=== PATIENT | male | born 1985 | race Caucasian/White ===

== ENCOUNTER 2021-03-30 06:00 | Emergency (ER) | payer SELFPAY ==
[~2021-03-30] VITALS: Ht 185.4 cm; Wt 172.4 kg
[2021-03-30 06:15] LABS: APPEARANCE,URINE Clear (CLEAR); BASOPHILS % (AUTO) 0.8 % (0.0-5.0); BILIRUBIN,URINE Negative (NEGATIVE); COLOR,URINE Yellow (YELLOW); EOSINOPHILS % (AUTO) 0.7 % (0.0-8.0); GLUCOSE, URINE (UA) Negative (NEGATIVE); HEMATOCRIT 48.1 % (42-54); KETONES,URINE Negative (NEGATIVE); LEUKOCYTE ESTERASE ,URINE Negative (NEGATIVE); LYMPHOCYTES % (AUTO) 32.4 % (21.0-51.0); MEAN CORPUSCULAR HEMOGLOBIN 30.6 pg (27.0-33.0); MEAN CORPUSCULAR HGB CONC 33.5 g/dL (32.0-36.0); MEAN CORPUSCULAR VOLUME 91.4 fL (79-99); NEUTROPHILS % (AUTO) 57.7 % (40.0-77.0); NITRATE,URINE Negative (NEGATIVE); OCCULT BLOOD,URINE Negative (NEGATIVE); PLATELET COUNT (AUTO) 297 K/uL (130-400); PROTEIN,URINE Negative (NEGATIVE); RED BLOOD CELL COUNT(AUTO) 5.26 MIL/uL (4.50-6.20); RED CELL DISTRIBUTION WIDTH 12.9 % (11.0-15.5); WHITE BLOOD COUNT (AUTO) 8.9 K/uL (4.8-10.8)
[2021-03-30 06:47] LABS: ALBUMIN 4.2 g/dL (3.5-5.0); BILIRUBIN,TOTAL 0.6 mg/dL (0.2-1.0); POTASSIUM 3.8 mmol/L (3.5-5.1)
[2021-03-30 08:18] VITALS: BP 118/76
== END 2021-03-30 08:19 | disposition home or self-care (01) ==
LOC: EDH 06:00
DX: F41.9 Anxiety disorder, unspecified (principal); R07.89 Other chest pain
CPT/HCPCS: 36415; 71045; 80053; 81003; 84484; 85025; 93005

== ENCOUNTER 2022-12-21 16:28 | Emergency (ER) | payer OTHER ==
[~2022-12-21] VITALS: Ht 185.4 cm; Wt 167.8 kg
[2022-12-21 19:37] VITALS: BP 135/75; PULSE 84; RESP 16; O2SAT 97
[2022-12-21] MEDS ORDERED: IBUP-2070 PO (20:12)
[2022-12-21] MEDS ORDERED: HYDROCODONE/ACETAMINOPHEN 5/325 MG TAB PO SCH (20:30)
[2022-12-21] MEDS ORDERED: IBUPROFEN 600 MG TABLET PO SCH (20:30)
== END 2022-12-21 20:47 | disposition home or self-care (01) ==
LOC: EDH 16:28
DX: S83.91XA Sprain of unspecified site of right knee, initial encounter (principal); W18.39XA Other fall on same level, initial encounter; Y93.01 Activity, walking, marching and hiking; Y92.89 Other specified places as the place of occurrence of the external cause; Y99.8 Other external cause status
CPT/HCPCS: 73562

== ENCOUNTER 2023-03-24 15:16 | Emergency (ER) | payer BC, OTHER ==
[~2023-03-24] VITALS: Ht 185.4 cm; Wt 167.4 kg
[~2023-03-24 15:16] MED LIST: IBUP-2070 PO
[2023-03-24 15:24] VITALS: BP 141/83; PULSE 84; RESP 16; O2SAT 97
[2023-03-24] MEDS ORDERED: ACETAMINOPHEN 325 MG TAB PO ONE (17:00)
[2023-03-24 17:11] LABS: APPEARANCE,URINE CLEAR (CLEAR); BILIRUBIN,URINE NEGATIVE (NEGATIVE); COLOR,URINE LIGHT-YELLOW (YELLOW); GLUCOSE, URINE (UA) NEGATIVE (NEGATIVE); KETONES,URINE NEGATIVE (NEGATIVE); LEUKOCYTE ESTERASE ,URINE NEGATIVE Leu/uL (NEGATIVE); NITRATE,URINE NEGATIVE (NEGATIVE); OCCULT BLOOD,URINE NEGATIVE (NEGATIVE); PROTEIN,URINE 10 mg/dL (NEGATIVE); UROBILINOGEN,URINE 0.2 mg/dL (0.2-1.0)
[2023-03-24 17:13] LABS: ADD UA MICROSCOPIC YES
[2023-03-24 17:14] LABS: MUCUS,URINE RARE LPF (None Seen); RBC,URINE 0-1 /HPF (0-1); WBC,URINE 0-1 /HPF (0-1)
[2023-03-24] MEDS ORDERED: CYCLOBENZAPRINE HCL 10 MG TABLET PO ONE (17:30)
[2023-03-24] MEDS ORDERED: CYCL10TA16 PO (17:34)
[2023-03-24] MEDS ORDERED: ACET-2893 PO (17:34)
== END 2023-03-24 17:51 | disposition home or self-care (01) ==
LOC: EDH 15:16
DX: M54.32 Sciatica, left side (principal)
CPT/HCPCS: 81001

== ENCOUNTER 2024-08-01 19:28 | Emergency (ER) | payer BC, OTHER ==
[~2024-08-01] VITALS: Ht 188 cm; Wt 179.6 kg
[~2024-08-01 19:28] MED LIST changes: +ACET-2893 PO; +CYCL10TA16 PO
[2024-08-01] MEDS: morPHINE 2 MG SYG IVP ONE (20:11)
[2024-08-01] MEDS: 0.9%NACL 1000ML 1,000 ML IV ONE (20:11)
[2024-08-01] MEDS: ondanSETRON 4MG INJ IVP ONE (20:11)
[2024-08-01 20:36] LABS: BASOPHILS # (AUTO) 0.09 K/uL (0.00-0.20); BASOPHILS % (AUTO) 1.2 % (0.0-5.0); EOSINOPHILS # (AUTO) 0.11 K/uL (0.00-0.70); EOSINOPHILS % (AUTO) 1.5 % (0.0-8.0); HEMATOCRIT 44.4 % (42-54); IMMATURE GRANULOCYTE ABSOLUTE 0.03 K/uL (0-1); LYMPHOCYTES # (AUTO) 1.9 K/uL (1.0-4.8); LYMPHOCYTES % (AUTO) 25.3 % (21.0-51.0); MEAN CORPUSCULAR HGB CONC 33.3 g/dL (32.0-36.0); MEAN CORPUSCULAR VOLUME 95.9 fL (79-99); MONOCYTES # (AUTO) 0.4 K/uL (0.1-1.0); MONOCYTES % (AUTO) 5.9 % (3.0-13.0); NEUTROPHILS # (AUTO) 4.9 K/uL (1.8-7.7); NEUTROPHILS % (AUTO) 65.7 % (40.0-77.0); PLATELET COUNT (AUTO) 244 K/uL (130-400); RED BLOOD CELL COUNT(AUTO) 4.63 MIL/uL (4.50-6.20); RED CELL DISTRIBUTION WIDTH 13.3 % (11.0-15.5); WHITE BLOOD COUNT (AUTO) 7.5 K/uL (4.8-10.8)
[2024-08-01 20:46] LABS: INR 0.97 (0.85-1.15); PROTHROMBIN TIME 10.3 SEC (9.6-11.6)
[2024-08-01 20:48] LABS: PARTIAL THROMBOPLASTIN TIME 27.5 SEC (26.3-35.5)
[2024-08-01 20:53] LABS: CARBON DIOXIDE 32 mmol/L (21-32); CHLORIDE 106 mmol/L (101-111); CREATININE 1.1 mg/dL (0.5-1.3); GLOMERULAR FILTR. RATE CALC 88 mL/min (>90); GLUCOSE,RANDOM 103 mg/dL (70-105); POTASSIUM 3.7 mmol/L (3.5-5.1); SODIUM SERUM 144 mmol/L (136-145); UREA NITROGEN, BLOOD 14 mg/dL (7-18)
[2024-08-01 20:57] LABS: ACETAMINOPHEN 3 mcg/mL (10-29); ALANINE AMINOTRANSFERASE 48 U/L (12-78); ALBUMIN 3.5 g/dL (3.5-5.0); ASPARTATE AMINOTRANSFERASE 19 U/L (10-37); BILIRUBIN,DIRECT 0.1 mg/dL (0.0-0.3); BILIRUBIN,TOTAL 0.3 mg/dL (0.2-1.0)
[2024-08-01 21:01] LABS: SALICYLATE < 2.8 mg/dL (2.8-20.0)
[2024-08-01] MEDS: ketOROlac 15MG/ML VIAL (15MG/ML) IV ONE (21:30)
[2024-08-01] MEDS: cefTRIAXone 1G VIAL IVPB ONE (21:54)
[2024-08-01] MEDS ORDERED: FAMO20TA8 PO (22:05)
[2024-08-01] MEDS ORDERED: KETO10TA2 PO (22:05)
[2024-08-01] MEDS ORDERED: AMOX1TAB16 PO (22:05)
--- NOTE | 2024-08-01 22:05 | ERN ---
General Chief Complaint: Tooth Ache/Pain Stated Complaint: C/O TOOTHACHE Time Seen by MD: 19:31 Time Seen by Midlevel: 19:31 Source: patient History of Present Illness Initial Comments She was 39-year-old male presenting to the emergency department for evaluation of dental pain. Patient states that for the last month he has been taking approximately 18 Tylenol and 18 Motrins a day. Today he noticed an increase in abdominal cramping which concerned him given the amount of medication he has been taking so he decided to report to the ER for further evaluation. Denies any other complaints at this time patient states he has been unable to see a doctor or dentist because he was waiting for his insurance to start in 14 days. Allergies: Coded Allergies: No Known Allergies (Unverified Allergy, Unknown, 12/21/22) Home Meds Active Scripts Cyclobenzaprine HCl (Flexeril) 10 Mg Tab, 10 MG PO TID, #15 TAB Prov:DREW ELIAS V [facility] 03/24/23 Acetaminophen (Acetaminophen ER) 650 Mg Tablet.er, 650 MG PO TID, #30 TAB Prov:DREW ELIAS [facility] 03/24/23 Ibuprofen (Ibuprofen) 600 Mg Tablet, 600 MG PO Q6H PRN for PAIN, #60 TAB Prov:TIM PRECIADO [facility] 12/21/22 Past Medical History Past Medical History: Unknown Past Surgical History: Unknown Family History Family History: Negative Social History Social History: Negative, Lives with family, Other ROS Dictation CONSTITUTIONAL: Negative except for HPI HEAD/FACE: Negative except for HPI EENT: Negative except for HPI RESPIRATORY: Negative except for HPI GASTROINTESTINAL/ABDOMINAL: Negative except for HPI GENITOURINARY: Negative except for HPI MUSCULOSKELETAL: Negative except for HPI INTEGUMENTARY: Negative except for HPI NEUROLOGICAL/PSYCH: Negative except for HPI HEMATOLOGIC/LYMPHATIC: Negative except for HPI All Systems Negative, Except as noted above. 13 point review of systems assessed and all negative except for above. Physical Exam Physical Exam Dictation Vital Signs reviewed General Appearance: Alert, oriented x 3, no acute distress, well developed, nourished. Head and Face: non-traumatic. Eyes: PERRL, pink conjunctivas, eyelid no trauma, anterior chamber with arcus senilis. Ears: Pinnas intact and no signs of trauma or erythema ear canals clear and no discharge TM no erythema Nose: No discharge, no bleeding. Oropharynx: Mouth normal, tongue pink, pharynx clear,no erythema, tonsils no exudates, no abscesses noted, mucous membrane moist, poor dentition, dental caries throughout Neck: Supple, non-tender, no thyromegaly, no masses, no JVD, no bruits Breast:Deferred Chest:No tenderness, no crepitus, no paradoxical movement, no retractions Lungs:Clear, well-ventilated, symmetric, no rales, no wheezing, no rhonchi, no stridor, good breath sounds bilaterally Heart: Regular rate, regular rhythm, no murmur, no gallops Vascular: no peripheral edema, Abdomen: Soft, positive bowel sounds, nondistended, no guarding, nontender, no rebound, no masses no hepatomegaly, no splenomegaly, no Hoskins's sign, no hernias. Rectal: Deferred Genital: Deferred Neurological: Normal speech, motor function intact, sensory function intact Musculoskeletal: Neck nontender, full range of motion, back nontender, full range of motion, Extremities: nontender, full range of motion Skin: Color pink, dry, no turgor, no rash, no lacerations, no abrasions, no contusions. Lymphatic: Deferred Results Laboratory and Microbiology Lab and Micro Result Laboratory Tests Test 08/01/24 20:24 White Blood Count 7.5 K/uL (4.8-10.8) Red Blood Count 4.63 MIL/uL (4.50-6.20) Hemoglobin 14.8 g/dL (14.0-18.0) Hematocrit 44.4 % (42-54) Mean Corpuscular Volume 95.9 fL (79-99) Mean Corpuscular Hemoglobin 32.0 pg (27.0-33.0) Mean Corpuscular Hemoglobin Concent 33.3 g/dL (32.0-36.0) Red Cell Distribution Width 13.3 % (11.0-15.5) Platelet Count 244 K/uL (130-400) Mean Platelet Volume 10.9 fL (7.5-10.5) H Immature Granulocyte % (Auto) 0.4 % (0-1) Neutrophils (%) (Auto) 65.7 % (40.0-77.0) Lymphocytes (%) (Auto) 25.3 % (21.0-51.0) Monocytes (%) (Auto) 5.9 % (3.0-13.0) Eosinophils (%) (Auto) 1.5 % (0.0-8.0) Basophils (%) (Auto) 1.2 % (0.0-5.0) Neutrophils # (Auto) 4.9 K/uL (1.8-7.7) Lymphocytes # (Auto) 1.9 K/uL (1.0-4.8) Monocytes # (Auto) 0.4 K/uL (0.1-1.0) Eosinophils # (Auto) 0.11 K/uL (0.00-0.70) Basophils # (Auto) 0.09 K/uL (0.00-0.20) Absolute Immature Granulocyte (auto 0.03 K/uL (0-1) Nucleated Red Blood Cells 0.0 % (0.0-0.19) Prothrombin Time 10.3 SEC (9.6-11.6) Prothromb Time International Ratio 0.97 (0.85-1.15) Activated Partial Thromboplast Time 27.5 SEC (26.3-35.5) Sodium Level 144 mmol/L (136-145) Potassium Level 3.7 mmol/L (3.5-5.1) Chloride Level 106 mmol/L (101-111) Carbon Dioxide Level 32 mmol/L (21-32) Blood Urea Nitrogen 14 mg/dL (7-18) Creatinine 1.1 mg/dL (0.5-1.3) Glomerular Filtration Rate Calc 88 mL/min (>90) Random Glucose 103 mg/dL (70-105) Total Calcium 8.6 mg/dL (8.5-10.1) Total Bilirubin 0.3 mg/dL (0.2-1.0) Direct Bilirubin 0.1 mg/dL (0.0-0.3) Aspartate Amino Transf (AST/SGOT) 19 U/L (10-37) Alanine Aminotransferase (ALT/SGPT) 48 U/L (12-78) Alkaline Phosphatase 105 U/L (50-136) Total Protein 7.0 g/dL (6.0-8.3) Albumin 3.5 g/dL (3.5-5.0) Lipase 36 U/L (16-77) Salicylates Level < 2.8 mg/dL (2.8-20.0) L Acetaminophen Level 3 mcg/mL (10-29) L Labs Reviewed?: Yes MDM MDM: She was 39-year-old male presenting to the emergency department for evaluation of dental pain. Patient states that for the last month he has been taking approximately 18 Tylenol and 18 Motrins a day. Today he noticed an increase in abdominal cramping which concerned him given the amount of medication he has been taking so he decided to report to the ER for further evaluation. Denies any other complaints at this time patient states he has been unable to see a doctor or dentist because he was waiting for his insurance to start in 14 days. On physical examination the patient was poor dentition throughout with multiple dental caries. He was gingival swelling but no evidence of dental abscess. Given the amount of medication the patient has been taking I obtain basic blood work including a hepatic function panel, PT INR to assess for any liver damage. Tylenol level was obtained which appears to be normal. On exam the patient was in no acute distress. There is minimal tenderness in the midepigastric region but no rebound or guarding. Vital signs are stable. CBC and chemistries are unremarkable. The patient was given one dose of Toradol and morphine in the emergency department and was given1 L of IV fluids and ceftriaxone to prevent a secondary infection from a dental abscess. Patient will be discharged home with Toradol and was strongly advised to stop taking Tylenol and Motrin though he was taking it. Patient will need to see a dentist outpatient for further evaluation. Return precautions discussed Differential diagnosis: Tylenol overdose, dental abscess, poor dentition There are no social concerns with this patient. Prescription drug management Prescriptions will include: Augmentin and Toradol Medical management and examination interpretation discussions were had by me with other qualified healthcare professionals as indicated for the patient's care. ED Course Orders Procedure Category Date Status Time Cbc With Differential LAB 08/01/24 Complete 19:41 Basic Metabolic Panel LAB 08/01/24 Complete 19:41 Hepatic Function Panel LAB 08/01/24 Complete 19:41 Lipase LAB 08/01/24 Complete 19:41 Pt And Ptt LAB 08/01/24 Complete 19:41 0.9%Nacl 1000ml (Ns PHA 08/01/24 Complete 1000ml) 20:00 Morphine 2mg Syg PHA 08/01/24 Complete (Morphine 2mg Syg) 20:00 Ondansetron 4mg Inj PHA 08/01/24 Complete (Zofran 4mg Inj) 20:00 Acetaminophen LAB 08/01/24 Complete 20:24 Salicylate LAB 08/01/24 Complete 20:24 Ketorolac PHA 08/01/24 Complete Tromethamine 15mg/Ml 21:30 Ceftriaxone 1g Vial PHA 08/01/24 In Process (Rocephine 1g Inj) 22:00 Current Medications Medications (Trade) Dose Ordered Sig/Joe Route PRN Reason Start Time Stop Time Status Last Admin Dose Admin Ceftriaxone Sodium (ROCEphine 1G INJ) 1 gm ONCE ONCE IVPB 08/01/24 22:00 08/01/24 22:01 08/01/24 21:54 Ketorolac Tromethamine (toRADol) 15 mg ONCE ONCE IV 08/01/24 21:30 08/01/24 21:31 DC 08/01/24 21:30 Morphine Sulfate (morPHINE 2MG SYG) 2 mg ONCE ONCE IVP 08/01/24 20:00 08/01/24 20:01 DC 08/01/24 20:11 Ondansetron HCl (zoFRAN 4MG INJ) 4 mg ONCE ONCE IVP 08/01/24 20:00 08/01/24 20:01 DC 08/01/24 20:11 Sodium Chloride 1,000 ml @ 0 mls/hr ONCE ONCE IV 08/01/24 20:00 08/01/24 20:01 DC 08/01/24 20:11 Vital Signs Date Time Temp Pulse Resp B/P (MAP) Pulse Ox O2 Delivery O2 Flow Rate FiO2 08/01/24 19:31 98.2 87 20 164/98 96 Room Air DX & DISP Disposition: Discharge Departure Impression: Primary Impression: Pain due to dental caries Condition: Stable Scripts Famotidine (Famotidine) 20 Mg Tablet 1 TAB PO BID for 30 Days, #60 TAB 0 Refills Prov: ESHA NICOLE 08/01/24 Amoxicillin/Potassium Clav (Amox Tr-K Clv 875-125 mg Tab) 875 Mg-125 Mg Tablet 1 EACH PO BID for 7 Days, #14 TAB 0 Refills Prov: ESHA NICOLE 08/01/24 Ketorolac Tromethamine (Ketorolac Tromethamine) 10 Mg Tablet 1 TAB PO TID for pain for 5 Days, #15 TAB 0 Refills Prov: ESHA NICOLE 08/01/24 Additional Instructions: Your blood work today is unremarkable. Your Tylenol level was normal. I have given you a prescription for Toradol which should help improve your pain over the next couple of days. Do not take this medication with ibuprofen. You may combine Toradol with Tylenol. You will need to follow up with the primary care doctor and or dentist for repeat evaluation. I have also given you a prescription for Augmentin which should prevent an infection. Referrals: SELF,REFERRAL (PCP) Time of Disposition: 22:03 I have reviewed the case, and I agree with, Diagnosis and Plan I performed the substantive portion of the visit. I have reviewed and personally made and approve the management plan that is documented in the note by myself or the CECE. I acknowledge for responsibility for the patient's management plan. ESHA NICOLE Aug 01, 2024 22:05
[2024-08-01 22:15] VITALS: BP 136/86; PULSE 82; RESP 18; TEMP 98.5; O2SAT 98
== END 2024-08-01 22:20 | disposition home or self-care (01) ==
LOC: EDH 19:28
DX: K02.9 Dental caries, unspecified (principal); Z79.899 Other long term (current) drug therapy
CPT/HCPCS: 99284; 96374; 96375; 96361; 80076; 80048; 83690; 85025; 85610; 85730; 36415; J1885; G0481; J2270; J7030; J0696; J2405

== ENCOUNTER 2024-10-05 12:21 | Emergency (ER) | payer BC, OTHER ==
[~2024-10-05] VITALS: Ht 188 cm; Wt 181.4 kg
[~2024-10-05 12:21] MED LIST changes: +AMOX1TAB16 PO; +FAMO20TA8 PO; +KETO10TA2 PO
--- NOTE | 2024-10-05 14:44 | ERN ---
General Chief Complaint: Skin Rash/Abscess Stated Complaint: RASH Time Seen by MD: 12:28 Source: patient History of Present Illness Initial Comments Patient noted this morning is a rash starting on his right arm of red non raised nonblanching that is surrounded by a small area of blanching. The rash spread to his back and he comes to the emergency room because he is concerned that the rash maybe contagious or represent some underlying severe illness. He has not changed anything in his environment either work or at home. He has no new medications no new food allergies that he is aware of no new food types either. No hazardous chemical exposure at work either Timing/Duration: 24 hours Severity: mild Allergies: Coded Allergies: No Known Allergies (Unverified Allergy, Unknown, 12/21/22) Home Meds Active Scripts Famotidine (Famotidine) 20 Mg Tablet, 1 TAB PO BID for 30 Days, #60 TAB 0 Refills Prov:ESHA NICOLE 08/01/24 Amoxicillin/Potassium Clav (Amox Tr-K Clv 875-125 mg Tab) 875 Mg-125 Mg Tablet, 1 EACH PO BID for 7 Days, #14 TAB 0 Refills Prov:ESHA NICOLE 08/01/24 Ketorolac Tromethamine (Ketorolac Tromethamine) 10 Mg Tablet, 1 TAB PO TID for pain for 5 Days, #15 TAB 0 Refills Prov:ESHA NICOLE 08/01/24 Cyclobenzaprine HCl (Flexeril) 10 Mg Tab, 10 MG PO TID, #15 TAB Prov:DREW ELIAS [facility] 03/24/23 Acetaminophen (Acetaminophen ER) 650 Mg Tablet.er, 650 MG PO TID, #30 TAB Prov:DREW ELIAS [facility] 03/24/23 Ibuprofen (Ibuprofen) 600 Mg Tablet, 600 MG PO Q6H PRN for PAIN, #60 TAB Prov:TIM PRECIADO [facility] 12/21/22 Past Medical History Past Medical History: Anxiety, Unknown Medical History Other: CHRONIC MIGRAINES Past Surgical History: None Family History Family History: Negative Social History Social History: Negative, Lives with family, Other ROS Dictation Aside from the rash review of systems is negative. No fevers no chills no signs of an infection no weakness no lightheadedness no upper respiratory tract infections. Physical Exam General Appearance: (+) no apparent distress Orientation: (+) oriented x 3 Head/Face Trauma: No Ear, Nose, Throat: (+) normal pharynx Respiratory: (+) chest non-tender, (+) lungs clear, (+) well ventilated Heart: (+) regular, (+) no gallop Skin Comment Patient has multiple petechiae on his right arm and a little bit on his back. It is little red dot is surrounded with a little bit of blanching skin. They are non swelling nonblanching. Results Laboratory and Microbiology Lab and Micro Result Laboratory Tests Test 10/05/24 14:39 White Blood Count 7.6 K/uL (4.8-10.8) Red Blood Count 4.93 MIL/uL (4.50-6.20) Hemoglobin 15.2 g/dL (14.0-18.0) Hematocrit 46.5 % (42-54) Mean Corpuscular Volume 94.3 fL (79-99) Mean Corpuscular Hemoglobin 30.8 pg (27.0-33.0) Mean Corpuscular Hemoglobin Concent 32.7 g/dL (32.0-36.0) Red Cell Distribution Width 13.3 % (11.0-15.5) Platelet Count 266 K/uL (130-400) Mean Platelet Volume 10.8 fL (7.5-10.5) H Immature Granulocyte % (Auto) 0.4 % (0-1) Neutrophils (%) (Auto) 68.4 % (40.0-77.0) Lymphocytes (%) (Auto) 21.3 % (21.0-51.0) Monocytes (%) (Auto) 8.0 % (3.0-13.0) Eosinophils (%) (Auto) 1.0 % (0.0-8.0) Basophils (%) (Auto) 0.9 % (0.0-5.0) Neutrophils # (Auto) 5.2 K/uL (1.8-7.7) Lymphocytes # (Auto) 1.6 K/uL (1.0-4.8) Monocytes # (Auto) 0.6 K/uL (0.1-1.0) Eosinophils # (Auto) 0.08 K/uL (0.00-0.70) Basophils # (Auto) 0.07 K/uL (0.00-0.20) Absolute Immature Granulocyte (auto 0.03 K/uL (0-1) Nucleated Red Blood Cells 0.0 % (0.0-0.19) Sodium Level 142 mmol/L (136-145) Potassium Level 4.5 mmol/L (3.5-5.1) Chloride Level 105 mmol/L (101-111) Carbon Dioxide Level 31 mmol/L (21-32) Blood Urea Nitrogen 15 mg/dL (7-18) Creatinine 1.0 mg/dL (0.5-1.3) Glomerular Filtration Rate Calc 99 mL/min (>90) Random Glucose 95 mg/dL (70-105) Total Calcium 9.2 mg/dL (8.5-10.1) Total Bilirubin 0.9 mg/dL (0.2-1.0) Aspartate Amino Transf (AST/SGOT) 36 U/L (10-37) Alanine Aminotransferase (ALT/SGPT) 81 U/L (12-78) H Alkaline Phosphatase 110 U/L (50-136) Total Protein 7.6 g/dL (6.0-8.3) Albumin 3.9 g/dL (3.5-5.0) MDM Patient has petechiae. He can not give me any environmental or medical reasons for why he is having this new rash. I will get a CBC. I will get a chemistry panel more for screening than anything else. Another I will give him a bolus of steroids H2 blockers and H1 blockers. Patient has received his medications. He is not having an adverse reaction to them I will discharge him home. ED Course Orders Procedure Category Date Status Time Cbc With Differential LAB 10/05/24 Complete 14:23 Comprehensive LAB 10/05/24 Complete Metabolic Panel 14:23 Methylprednisolone PHA 10/05/24 Complete Succ 125mg (Solu-Medr 15:00 Diphenhydramine Hcl PHA 10/05/24 Complete (Benadryl Inj) 15:00 Famotidine 20mg Vial PHA 10/05/24 Complete (Pepcid 20mg Vial) 15:00 Current Medications Medications (Trade) Dose Ordered Sig/Joe Route PRN Reason Start Time Stop Time Status Last Admin Dose Admin Diphenhydramine HCl (BENAdryl INJ) 25 mg ONCE ONCE IV 10/05/24 15:00 10/05/24 15:01 DC 10/05/24 14:58 Famotidine (Pepcid 20mg Vial) 20 mg ONCE ONCE IV 10/05/24 15:00 10/05/24 15:01 DC 10/05/24 14:58 Methylprednisolone Sodium Succinate (Solu-medROL 125MG) 125 mg ONCE ONCE IVP 10/05/24 15:00 10/05/24 15:01 DC 10/05/24 14:58 Vital Signs Date Time Temp Pulse Resp B/P (MAP) Pulse Ox O2 Delivery O2 Flow Rate FiO2 10/05/24 12:25 97.3 90 16 147/94 98 Room Air DX & DISP Disposition: Discharge Departure Impression: Primary Impression: Petechial eruption Condition: Stable Additional Instructions: Please follow-up with your primary care physician if the rash does not resolve i n the next day or two. 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 Referrals: SELF,REFERRAL (PCP) JENNIFER NGUYEN MD October 05, 2024 14:44
[2024-10-05 14:47] LABS: BASOPHILS # (AUTO) 0.07 K/uL (0.00-0.20); BASOPHILS % (AUTO) 0.9 % (0.0-5.0); EOSINOPHILS # (AUTO) 0.08 K/uL (0.00-0.70); HEMATOCRIT 46.5 % (42-54); IMMATURE GRANULOCYTE ABSOLUTE 0.03 K/uL (0-1); LYMPHOCYTES # (AUTO) 1.6 K/uL (1.0-4.8); LYMPHOCYTES % (AUTO) 21.3 % (21.0-51.0); MEAN CORPUSCULAR HEMOGLOBIN 30.8 pg (27.0-33.0); MEAN CORPUSCULAR HGB CONC 32.7 g/dL (32.0-36.0); MEAN CORPUSCULAR VOLUME 94.3 fL (79-99); MONOCYTES # (AUTO) 0.6 K/uL (0.1-1.0); NEUTROPHILS # (AUTO) 5.2 K/uL (1.8-7.7); NEUTROPHILS % (AUTO) 68.4 % (40.0-77.0); PLATELET COUNT (AUTO) 266 K/uL (130-400); RED BLOOD CELL COUNT(AUTO) 4.93 MIL/uL (4.50-6.20); RED CELL DISTRIBUTION WIDTH 13.3 % (11.0-15.5); WHITE BLOOD COUNT (AUTO) 7.6 K/uL (4.8-10.8)
[2024-10-05 14:58] LABS: POTASSIUM 4.5 mmol/L (3.5-5.1)
[2024-10-05] MEDS: FAMOTIDINE 20MG VIAL IV ONE (14:58)
[2024-10-05] MEDS: Solu-medROL 125MG VIAL IVP ONE (14:58)
[2024-10-05] MEDS: DiphenhydrAMINE HCL 50 MG/ML VIAL IV ONE (14:58)
[2024-10-05 15:03] LABS: ALBUMIN 3.9 g/dL (3.5-5.0); BILIRUBIN,TOTAL 0.9 mg/dL (0.2-1.0); TOTAL PROTEIN, SERUM 7.6 g/dL (6.0-8.3)
[2024-10-05 16:01] VITALS: BP 132/84; PULSE 84; RESP 18; TEMP 97.9; O2SAT 97
== END 2024-10-05 16:02 | disposition home or self-care (01) ==
LOC: EDH 12:21
DX: R23.3 Spontaneous ecchymoses (principal); F41.9 Anxiety disorder, unspecified; Z79.899 Other long term (current) drug therapy
CPT/HCPCS: 99284; 96374; 96375; 80053; 85025; 36415; J2919; J1200; J3490